=== PATIENT | male | born 1985 | race Caucasian/White ===

== ENCOUNTER → 2019-11-15 | Outpatient (CLI) | payer MEDICARE, MEDICAID ==
--- NOTE | 2019-11-15 15:27 | Diagnostic Imaging Report ---
INDICATION: Neck surgery and neck pain. TIME OF EXAM: 12:42 p.m. COMPARISON: No prior studies are available for comparison. FINDINGS: Cervico-occipital posterior fusion is noted. Vertical stabilization rods and screws extend from the occiput to the C6 level. Hardware is intact. No definite fracture or loosening of the hardware is seen. There is reversal of the normal cervical lordotic curvature. There is generalized degenerative disc disease. No fractures are seen. Prevertebral tissues are normal. IMPRESSION: Cervico-occipital posterior fusion, as described. No hardware fracture or loosening is seen. Dictated by: Dictated on workstation # [id number]
== END ==
LOC: RAD FS 12:27
PROVIDERS: ATTEND Nurse Practitioner Family
DX: M54.2 Cervicalgia (principal); Z98.1 Arthrodesis status
CPT/HCPCS: 72040

== ENCOUNTER → 2019-11-28 | Outpatient (CLI) | payer MEDICARE, MEDICAID ==
--- NOTE | 2019-11-28 15:41 | Diagnostic Imaging Report ---
INDICATION: Skin color change both lower extremities. History of transient ischemic attack/CVA along with tobacco use. Ankle swelling. TECHNIQUE: Segmental pulse pressures were performed of the upper and lower extremities. FINDINGS: Resting Doppler Blood Pressures RIGHT Brachial: 93 mmHg Ankle (Posterior Tibial): 114 mm Hg Index: 1.23 Ankle (Dorsalis Pedis): 107 mm Hg Index: 1.15 LEFT Brachial: 87 mmHg Ankle (Posterior Tibial): 102 mm Hg Index: 1.10 Ankle (Dorsalis Pedis): 105 mm Hg Index: 1.13 IMPRESSION: Normal ankle-brachial indices as above. Ankle-Brachial Index Diagnosis/Interpretation <=0.90 Peripheral Arterial Disease 0.91-0.99 Borderline 1.00-1.40 Normal >1.40 Concern for noncompressible arteries, (assoc with Diabetes Mellitus) Dictated by: Dictated on workstation # [id number]
--- NOTE | 2019-11-28 17:33 | Diagnostic Imaging Report ---
PROCEDURE: US venous lower extremity, bilaterally. TECHNIQUE: Multiple real-time grayscale images were obtained over the lower extremities in various projections, bilaterally. Additional duplex Doppler and color Doppler images were also obtained. INDICATION: Bilateral leg swelling. Paraplegic. CORRELATION STUDY: None. FINDINGS: Overall findings are somewhat limited. The veins throughout the lower extremities are fairly small in their overall caliber. There does appear to be some areas of scattered filling defect within multiple vessels. This appears slightly greater on the left compared to right. Findings are suggestive of probable areas of nonocclusive thrombus and/or scarring. Age of this, however, is ultimately indeterminate. IMPRESSION: Somewhat limited, suboptimal bilateral lower extremity venous duplex Doppler examination. Filling defects are present and may reflect nonocclusive clot within the lower lobectomy deep venous systems, left greater than right. Age of these are indeterminate could be acute or chronic. Dictated by: Dictated on workstation # [id number]
--- NOTE | 2019-11-28 17:39 | Diagnostic Imaging Report ---
PROCEDURE: US Bilateral lower extremity arterial. TECHNIQUE: Multiple real-time grayscale images are obtained through both lower extremity arterial systems with color Doppler imaging and color Doppler spectral analysis. INDICATION: Bilateral leg swelling. CORRELATION STUDY: None. FINDINGS: The major arteries of both legs are patent. There is detectable flow noted in the dorsalis pedis and posterior tibial arteries at the level of the ankle. There is generally normal multiphasic, triphasic to slightly dampened biphasic waveforms noted throughout the major arteries. There is no significant velocity change to suggest a focal area of stenosis. IMPRESSION: Bilateral lower extremity arterial systems are patent to the level of the ankles. No findings to suggest a focal area of stenosis. Dictated by: Dictated on workstation # [id number]
== END ==
LOC: RAD 12:27
PROVIDERS: ATTEND Nurse Practitioner Family
DX: R22.43 Localized swelling, mass and lump, lower limb, bilateral (principal); M79.661 Pain in right lower leg; G62.9 Polyneuropathy, unspecified
CPT/HCPCS: 93922; 93925; 93970

== ENCOUNTER → 2020-03-14 | Outpatient (CLI) | payer MEDICARE, MEDICAID ==
[~2020-03-14] MED LIST: HOLD METFORMIN - RECEIVED CONTRAST 20 ML VIAL IV SCH; IOHEXOL 350 MG/ML 100 ML (OMNIPAQUE 350) VIAL IV ONE; NS 100 ML (IVPB) BAG IV ONE
[2020-03-14 13:38] LABS: ABG BASE EXCESS 4.8 MMOL/L (-2.5-2.5); ABG PCO2 55 MMHG (35-45); ABG PH 7.36 (7.37-7.43); ABG TCO2 31.6 MMOL/L (21.0-31.0)
[2020-03-14 13:53] LABS: BUN/CREATININE RATIO 9; CREATININE SERUM 1.06 MG/DL (0.60-1.30); GFR ESTIMATED > 60
[2020-03-14 13:54] LABS: ABG OXYGEN SATURATION 63 % (94-100); ABG PO2 39 MMHG (79-93); ALLENS TEST YES-POS; INSPIRED O2 RA; PATIENT TEMP 37.4; VENTILATOR NO
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
== END ==
LOC: RT 12:58
PROVIDERS: ATTEND Internal Medicine Critical Care Medicine
DX: M41.84 Other forms of scoliosis, thoracic region (principal); F17.211 Nicotine dependence, cigarettes, in remission; J98.4 Other disorders of lung; R06.00 Dyspnea, unspecified; V29.9XXA Motorcycle rider (driver) (passenger) injured in unspecified traffic accident, initial encounter; Z95.828 Presence of other vascular implants and grafts; Z98.890 Other specified postprocedural states
CPT/HCPCS: 36415; 71260; 82565; 82805; 84520

== ENCOUNTER → 2020-04-01 | Outpatient (CLI) | payer MEDICARE, MEDICAID ==
--- NOTE | 2020-04-01 13:53 | Diagnostic Imaging Report ---
PROCEDURE: CT urinary tract, rule out kidney stone. TECHNIQUE: Multiple contiguous axial images were obtained through the abdomen and pelvis without the use of intravenous contrast. Auto Exposure Controls were utilized during the CT exam to meet ALARA standards for radiation dose reduction. INDICATION: Left-sided flank pain since yesterday. No prior studies are available for comparison. The lung bases are clear. There is diastases of the rectus musculature with midline ventral hernia. This does contain portions of the stomach as well as transverse colon and several small bowel loops. Bowel loops do remain normal caliber. No definite evidence of obstruction or strangulation is identified. Postsurgical changes in the right lobe the liver are noted with multiple surgical clips present. Gallbladder is unremarkable. No biliary ductal dilatation is seen. The pancreas and spleen are unremarkable. No adrenal mass is identified. A right kidney is not visualized. There is a solitary left kidney which does demonstrate generalized hydroureteronephrosis. The dilated left ureter is traced into the pelvis to the UVJ but no definite obstructing calculi are seen. The bladder is decompressed by suprapubic catheter. There is a probable tiny intrarenal calculus noted within left lower pole renal calyx. Aorta is non-aneurysmal. There is a filter within the IVC. No free fluid or fluid collection is identified. A partially threaded screw transfixes the right SI joint and right hemipelvis. IMPRESSION: 1. Solitary left kidney demonstrates generalized hydroureteronephrosis. No definite obstructing calculi are detected. The bladder is decompressed by suprapubic catheter. There are small nonobstructing calculi within the left kidney. 2. Rectus abdominous musculature diastases with large midline ventral hernia, as described. No definite bowel obstruction or strangulation is seen. Dictated by: Dictated on workstation # [id number]
== END ==
LOC: RAD FS 12:58
PROVIDERS: ATTEND Nurse Practitioner Family
DX: N13.2 Hydronephrosis with renal and ureteral calculous obstruction (principal); M62.08 Separation of muscle (nontraumatic), other site; K43.9 Ventral hernia without obstruction or gangrene; Z87.442 Personal history of urinary calculi; Z98.890 Other specified postprocedural states; Z98.1 Arthrodesis status
CPT/HCPCS: 74176

== ENCOUNTER → 2020-05-28 | Outpatient (CLI) | payer MEDICARE, MEDICAID ==
--- NOTE | 2020-05-28 15:38 | Diagnostic Imaging Report ---
INDICATION: Back pain. COMPARISON: None. FINDINGS: Frontal and lateral radiographic views of the thoracic spine were obtained. Evaluation of static alignment shows [id number] dextroscoliotic deformity measured approximately 37 degrees. Lateral view shows no significant anteroretrolisthesis. Vertebral body heights are maintained. There is no evidence of acute fracture. No effusion or segmentation anomalies are identified. Included portions of the lung hubbard are clear. Right internal jugular Port-A-Cath is noted with tip in the SVC. IMPRESSION: 1. Xana-tc-rxjpmkoz dextroscoliotic deformity of the thoracic spine, but no evidence of acute fracture or dislocation. Dictated by: Dictated on workstation # [id number]
== END ==
LOC: RAD FS 14:34
PROVIDERS: ATTEND Nurse Practitioner Family
DX: M41.84 Other forms of scoliosis, thoracic region (principal); Z95.828 Presence of other vascular implants and grafts
CPT/HCPCS: 72070

== ENCOUNTER → 2020-07-21 | Outpatient (CLI) | payer MEDICARE, MEDICAID ==
[2020-07-21 14:36] LABS: BILIRUBIN,URINE NEGATIVE (NEGATIVE); CLARITY,URINE SLIGHTLY CLOUDY; COLOR,URINE PALE YELLOW; GLUCOSE, URINE (UA) NEGATIVE (NEGATIVE); KETONES,URINE NEGATIVE (NEGATIVE); LEUKOCYTE ESTERASE ,URINE 2+ (NEGATIVE); NITRITE,URINE NEGATIVE (NEGATIVE); PROTEIN,URINE NEGATIVE (NEGATIVE)
[2020-07-21 14:37] LABS: BACTERIA,URINE LARGE /HPF; WBC,URINE 50-100 /HPF
== END ==
LOC: LAB FS 14:01
PROVIDERS: ATTEND Family Medicine
DX: R82.90 Unspecified abnormal findings in urine (principal)
CPT/HCPCS: 81000; 87088

== ENCOUNTER → 2020-08-27 | Outpatient (CLI) | payer MEDICARE, MEDICAID ==
[2020-08-27 13:57] LABS: BILIRUBIN,URINE NEGATIVE (NEGATIVE); CLARITY,URINE CLOUDY; COLOR,URINE YELLOW; GLUCOSE, URINE (UA) NEGATIVE (NEGATIVE); KETONES,URINE NEGATIVE (NEGATIVE); LEUKOCYTE ESTERASE ,URINE 2+ (NEGATIVE); NITRITE,URINE NEGATIVE (NEGATIVE); PROTEIN,URINE 1+ (NEGATIVE)
[2020-08-27 13:58] LABS: BACTERIA,URINE MODERATE /HPF; SQUAMOUS EPITHELIAL CELL,UR 0-2 /HPF; WBC,URINE 50-100 /HPF
== END ==
LOC: LAB FS 13:34
PROVIDERS: ATTEND Nurse Practitioner Family
DX: M62.838 Other muscle spasm (principal)
CPT/HCPCS: 81000; 87088

== ENCOUNTER → 2020-10-01 | Outpatient (CLI) | payer MEDICARE, MEDICAID ==
[2020-10-01 15:49] LABS: BILIRUBIN,URINE NEGATIVE (NEGATIVE); CLARITY,URINE SLT CLOUDY; COLOR,URINE PALE YELLOW; GLUCOSE, URINE (UA) NEGATIVE (NEGATIVE); KETONES,URINE NEGATIVE (NEGATIVE); LEUKOCYTE ESTERASE ,URINE 2+ (NEGATIVE); NITRITE,URINE POSITIVE (NEGATIVE); PROTEIN,URINE NEGATIVE (NEGATIVE)
[2020-10-01 15:50] LABS: BACTERIA,URINE MODERATE /HPF; RBC,URINE 0-2 /HPF; SQUAMOUS EPITHELIAL CELL,UR RARE /HPF; WBC,URINE 25-50 /HPF
== END ==
LOC: IHC 15:19
PROVIDERS: ATTEND Family Medicine
DX: N39.0 Urinary tract infection, site not specified (principal)
CPT/HCPCS: 81000; 87088

== ENCOUNTER → 2020-10-17 | Outpatient (CLI) | payer MEDICARE, MEDICAID ==
--- NOTE | 2020-10-17 13:36 | Diagnostic Imaging Report ---
INDICATION: Shoulder pain. COMPARISON: None. FINDINGS: 2 views of the right shoulder were obtained. There is no fracture, dislocation, or other acute bony abnormality identified. The soft tissues appear unremarkable. No radiopaque foreign bodies identified. The visualized portions of the right lung are clear. Right internal jugular Port-A-Cath is seen with tip in the low SVC IMPRESSION: No acute fractures or dislocations of the right shoulder. Dictated by: Dictated on workstation # [id number]
== END ==
LOC: RAD FS 13:05
PROVIDERS: ATTEND Nurse Practitioner Family
DX: M25.511 Pain in right shoulder (principal)
CPT/HCPCS: 73030

== ENCOUNTER → 2020-12-18 | Outpatient (CLI) | payer MEDICARE, MEDICAID ==
[2020-12-18 13:19] LABS: BACTERIA,URINE MODERATE /HPF; BILIRUBIN,URINE NEGATIVE (NEGATIVE); CLARITY,URINE CLEAR; COLOR,URINE YELLOW; GLUCOSE, URINE (UA) NEGATIVE (NEGATIVE); KETONES,URINE NEGATIVE (NEGATIVE); LEUKOCYTE ESTERASE ,URINE 1+ (NEGATIVE); NITRITE,URINE NEGATIVE (NEGATIVE); PROTEIN,URINE NEGATIVE (NEGATIVE)
[2020-12-18 13:20] LABS: AMORPHOUS SEDIMENT,UR FEW AMOR URATES /LPF
== END ==
LOC: IHC 12:41
PROVIDERS: ATTEND Family Medicine
DX: Z43.5 Encounter for attention to cystostomy (principal)
CPT/HCPCS: 81000; 87077; 87088; 87186

== ENCOUNTER → 2021-01-02 | Outpatient (CLI) | payer MEDICARE, MEDICAID ==
--- NOTE | 2021-01-02 15:35 | Diagnostic Imaging Report ---
EXAMINATION: Chest 2 views. HISTORY: Wheezing. COMPARISON: None available. FINDINGS: Right-sided port catheter is present. Heart is mildly enlarged. There is no pleural effusion or pneumothorax. There is dextroscoliosis of the right hilum that is slightly distorted due to this. IMPRESSION: 1. Clear lungs. Dictated by: Dictated on workstation # [id number]
== END ==
LOC: RAD FS 14:35
PROVIDERS: ATTEND Nurse Practitioner Family
DX: R06.2 Wheezing (principal)
CPT/HCPCS: 71046

== ENCOUNTER → 2021-01-13 | Outpatient (CLI) | payer MEDICARE, MEDICAID ==
[2021-01-13 14:08] LABS: BACTERIA,URINE MODERATE /HPF; BILIRUBIN,URINE NEGATIVE (NEGATIVE); CLARITY,URINE CLEAR; COLOR,URINE YELLOW; GLUCOSE, URINE (UA) NEGATIVE (NEGATIVE); KETONES,URINE NEGATIVE (NEGATIVE); LEUKOCYTE ESTERASE ,URINE 3+ (NEGATIVE); NITRITE,URINE NEGATIVE (NEGATIVE); PROTEIN,URINE NEGATIVE (NEGATIVE)
== END ==
LOC: IHC 13:24
PROVIDERS: ATTEND Family Medicine
DX: N39.0 Urinary tract infection, site not specified (principal)
CPT/HCPCS: 81000; 87088

== ENCOUNTER → 2021-01-16 | Outpatient (CLI) | payer MEDICARE, MEDICAID ==
[2021-01-16 12:45] LABS: BILIRUBIN,URINE NEGATIVE (NEGATIVE); CLARITY,URINE CLEAR; COLOR,URINE PALE YELLOW; GLUCOSE, URINE (UA) NEGATIVE (NEGATIVE); KETONES,URINE NEGATIVE (NEGATIVE); NITRITE,URINE NEGATIVE (NEGATIVE); PH,URINE 6.5 (5-9); PROTEIN,URINE NEGATIVE (NEGATIVE)
[2021-01-16 12:46] LABS: BACTERIA,URINE TRACE /HPF; LEUKOCYTE ESTERASE ,URINE 2+ (NEGATIVE); RBC,URINE RARE /HPF
== END ==
LOC: IHC 12:04
PROVIDERS: ATTEND Family Medicine
DX: R82.90 Unspecified abnormal findings in urine (principal)
CPT/HCPCS: 81000

== ENCOUNTER → 2021-01-21 | Outpatient (CLI) | payer MEDICARE, MEDICAID | LOC: IHC 13:43 | PROVIDERS: ATTEND Nurse Practitioner Family | DX: N39.0 Urinary tract infection, site not specified (principal); R56.9 Unspecified convulsions; M62.838 Other muscle spasm | CPT/HCPCS: 87088 ==

== ENCOUNTER → 2021-04-29 | Outpatient (CLI) | payer MEDICARE, MEDICAID ==
[2021-04-29 17:26] LABS: BILIRUBIN,URINE NEGATIVE (NEGATIVE); CLARITY,URINE SL CLOUDY; GLUCOSE, URINE (UA) NEGATIVE (NEGATIVE); KETONES,URINE NEGATIVE (NEGATIVE); LEUKOCYTE ESTERASE ,URINE 2+ (NEGATIVE); NITRITE,URINE POSITIVE (NEGATIVE); PROTEIN,URINE NEGATIVE (NEGATIVE)
[2021-04-29 17:38] LABS: BACTERIA,URINE MODERATE /HPF; COLOR,URINE PALE YELLOW
== END ==
LOC: IHC 16:12
PROVIDERS: ATTEND Family Medicine
DX: N39.0 Urinary tract infection, site not specified (principal)
CPT/HCPCS: 81000; 87088

== ENCOUNTER → 2021-06-01 | Outpatient (CLI) | payer MEDICARE, MEDICAID ==
--- NOTE | 2021-06-01 11:51 | Diagnostic Imaging Report ---
PROCEDURE: CT head without contrast. TECHNIQUE: Multiple contiguous axial images were obtained through the brain without the use of intravenous contrast. Auto Exposure Controls were utilized during the CT exam to meet ALARA standards for radiation dose reduction. INDICATION: Headache increasing in severity in the left temporal region. No prior studies are available for comparison. Ventricles are somewhat prominent for patient of this age. There is no sulcal effacement. No midline shift is identified. No acute intra-axial or extra-axial hemorrhage is detected. Cisterns are patent. Visualized paranasal sinuses demonstrate opacification of several ethmoid air cells. Sinuses are otherwise clear. IMPRESSION: Mildly prominent ventricles. The study is otherwise unremarkable. Dictated by: Dictated on workstation # [id number]
== END ==
LOC: RAD FS 11:13
PROVIDERS: ATTEND Nurse Practitioner Family
DX: R51.9 Headache, unspecified (principal); Z87.898 Personal history of other specified conditions
CPT/HCPCS: 70450

== ENCOUNTER 2021-10-23 13:00 | Outpatient (RCR) | payer MEDICARE, MEDICAID | END 2021-10-27 | disposition home or self-care (01) | LOC: CARD 13:00 | PROVIDERS: ATTEND Physician Assistant | DX: R00.2 Palpitations (principal) ==

== ENCOUNTER → 2022-01-26 | Outpatient (CLI) | payer MEDICARE, MEDICAID ==
--- NOTE | 2022-01-26 15:49 | Diagnostic Imaging Report ---
INDICATION: Pain in the left wrist. TIME OF EXAM: 11:57 a.m. FINDINGS: Three views of the left wrist were obtained. Distal radius and ulna are intact. The carpus appears intact. Metacarpals are unremarkable. No fractures are seen. IMPRESSION: No acute bony abnormality is detected. Dictated by: Dictated on workstation # [id number]
--- NOTE | 2022-01-26 15:50 | Diagnostic Imaging Report ---
Indication: Right wrist pain. Time of Exam: 11:59 AM Three views of the right wrist were obtained. There appears to be a healed fracture of the distal ulna near the junction of the mid and distal third. There is a large amount of soft tissue calcification in the forearm, likely in the region of the interosseous membrane from prior injury. The distal radius and ulna are intact. Carpus appears intact. No new fracture is seen. IMPRESSION: Chronic and posttraumatic changes. No acute bony abnormality is detected. Dictated by: Dictated on workstation # [id number]
== END ==
LOC: RAD FS 11:39
PROVIDERS: ATTEND Nurse Practitioner Family
DX: M25.532 Pain in left wrist (principal); M25.531 Pain in right wrist; G89.11 Acute pain due to trauma
CPT/HCPCS: 73110

== ENCOUNTER 2022-05-07 20:42 | Emergency (ER) | payer MEDICARE, MEDICAID ==
[~2022-05-07] VITALS: Ht 180.3 cm; Wt 81.6 kg
--- NOTE | 2022-05-07 21:02 | ED GI ---
General Chief Complaint: Catheter/Drain/Tube Problems Stated Complaint: CATH ISSUES,ABD PAIN Source of Information: Patient Exam Limitations: No Limitations History of Present Illness Date Seen by Provider: May 07, 2022 Time Seen by Provider: 20:45 Initial Comments 37yoM with PMH of cervical spine injury now with suprapubic catheter for many years coming in due to catheter issue. He states its been clogged for many hours, and he is about 2 days overdue for changing it out anyways. He does have supplies to change it out, is requesting we can do that for him. Does have some suprapubic discomfort associated with it, and feels like his bladder is full. Denies any fever, nausea, vomiting, or any other concerns Allergies and Home Medications Allergies Coded Allergies: No Allergy Information Available (Unverified , 03/14/20) Patient Home Medication List Home Medication List Reviewed: Yes Review of Systems Review of Systems Constitutional: No fever EENTM: No Symptoms Reported Respiratory: No Symptoms Reported Cardiovascular: No Symptoms Reported Gastrointestinal: No Symptoms Reported Genitourinary: See HPI Musculoskeletal: no symptoms reported Skin: no symptoms reported Psychiatric/Neurological: No Symptoms Reported Endocrine: No Symptoms Reported Hematologic/Lymphatic: No Symptoms Reported All Other Systems Reviewed Negative Unless Noted: Yes Past Ydhvxbf-Upublr-Qfeadj Hx Patient Social History Substance use?: No Past Medical History Surgeries: Yes (suprapubic catheter) Physical Exam Vital Signs Capillary Refill : Height/Weight/BMI Height: '" Weight: lbs. oz. kg; BMI Method: General Appearance: WD/WN, no apparent distress HEENT: PERRL/EOMI, normal ENT inspection, pharynx normal Neck: non-tender, full range of motion, supple, normal inspection Respiratory: chest non-tender, lungs clear, normal breath sounds, no respiratory distress, no accessory muscle use Cardiovascular: regular rate, rhythm, no edema, no murmur Gastrointestinal: normal bowel sounds, soft; No distended, No guarding, No rebound; tenderness (Suprapubic) Extremities: other (Legs paralyzed and nonfunctional) Back: normal inspection, no CVA tenderness, no vertebral tenderness Neurologic/Psychiatric: alert, normal mood/affect, other (At baseline) Skin: normal color, warm/dry Lymphatic: no adenopathy Progress/Results/Core Measures Progress Progress Note : Progress Note 37-year-old male with above history coming in due to problems with his suprapubic catheter. ABCs were intact and vitals were stable on presentation. His suprapubic catheter was changed out here in the ER with good clear urine drainage. Patient feeling better. Discharged home in stable condition with strict return precautions Departure Impression Primary Impression: Miller catheter problem Qualified Codes: T83.9XXA - Unspecified complication of genitourinary prosthetic device, implant and graft, initial encounter Disposition: HOME, SELF-CARE Condition: Improved Departure-Patient Inst. Decision time for Depature: 21:17 Referrals: SOFIYA EARLY APRN (PCP) Primary Care Physician [facility][1]/MICHAEL (Family) Primary Care Physician Patient Instructions: Miller Catheter Add. Discharge Instructions: Please follow-up with your regular doctor as needed. If he have any issues, you can always come back to the ER Work/School Note: Work Release Form Date Seen in the Emergency Department: May 07, 2022 Return to Work: May 08, 2022 Restrictions: No Restrictions FAUSTINA FOX MD May 07, 2022 21:02
[2022-05-07 21:15] VITALS: BP 140/84
== END 2022-05-07 21:52 | disposition home or self-care (01) ==
LOC: EDUNIT# 20:42 → ER FS 20:43
DX: T83.9XXA Unspecified complication of genitourinary prosthetic device, implant and graft, initial encounter (principal)
CPT/HCPCS: 99282

== ENCOUNTER → 2022-06-01 | Outpatient (CLI) | payer MEDICARE, MEDICAID ==
[~2022-06-01] MED LIST changes: +CATHETER FLUSH 10 ML SYR IV PRN
[2022-06-01 12:50] LABS: POTASSIUM 4.2 MMOL/L (3.6-5.0)
[2022-06-01 12:51] LABS: CREATININE SERUM 1.14 MG/DL (0.60-1.30)
--- NOTE | 2022-06-01 14:40 | Diagnostic Imaging Report ---
EXAMINATION: CT chest with intravenous contrast. TECHNIQUE: Multiple contiguous axial images were obtained through the chest after the uneventful administration of intravenous contrast. All CT scans use one or more of the following dose optimizing techniques: automated exposure control, MA and/or KvP adjustment based on patient size and exam type or iterative reconstruction. HISTORY: Chronic respiratory failure COMPARISON: 03/14/2020 FINDINGS: Thyroid: The thyroid is normal. Mediastinum: Heart size is normal without significant pericardial effusion. The aorta is normal in caliber. No suspicious lymphadenopathy. Lungs and airways: The lungs are clear without consolidation, pleural effusion, or pneumothorax. There is linear atelectasis or scarring in the lung bases. There is occlusion of the posterior right lower lobe airways (series 5 image 87, 88). Upper abdomen: There is diastases of the anterior abdominal wall. The gallbladder is surgically absent. Nodular appearance of the left kidney. Musculoskeletal: Degenerative changes of the spine without suspicious osseous lesion or compression fracture. IMPRESSION: 1. No acute abnormality in the chest. 2. Filling defects within the posterior right lower lobe airways which can be seen with mucus plugging, as similar findings were seen within multiple airways in the right lower lobe on 03/14/2020. Recommend continued CT followup in 6-12 months. Dictated by: Dictated on workstation # [id number]
== END ==
LOC: RAD FS 04-16 11:08
PROVIDERS: ATTEND Nurse Practitioner Family
DX: Z01.811 Encounter for preprocedural respiratory examination (principal); J96.10 Chronic respiratory failure, unspecified whether with hypoxia or hypercapnia; G82.20 Paraplegia, unspecified; R26.89 Other abnormalities of gait and mobility
CPT/HCPCS: 36415; 71260; 80048; Q9967

== ENCOUNTER → 2022-09-08 | Outpatient (CLI) | payer MEDICARE, MEDICAID ==
--- NOTE | 2022-09-08 11:42 | Diagnostic Imaging Report ---
INDICATION: Recurrent UTIs. COMPARISON: None FINDINGS: Single frontal radiographic view of the abdomen was obtained. Multiple surgical clips project over the right upper abdominal quadrant. Indwelling IVC filter is present. Partially threaded screw are also traverses the right SI joint. No unexpected extraosseous calcifications or radiopaque foreign bodies are seen. Small bowel loops are nondistended. There is no large collection of free intraperitoneal air. IMPRESSION: 1. Nonobstructed small bowel gas pattern. Dictated by: Dictated on workstation # [id number]
== END ==
LOC: RAD FS 10:58
PROVIDERS: ATTEND Urology
DX: N39.0 Urinary tract infection, site not specified (principal)
CPT/HCPCS: 74018

== ENCOUNTER 2022-10-05 16:06 | Emergency (ER) | payer MEDICARE, MEDICAID ==
[~2022-10-05] VITALS: Ht 177.8 cm; Wt 86.2 kg
[2022-10-05] MEDS ORDERED: NS IV 1000 ML 1,000 ML IV STA (16:18)
[2022-10-05] MEDS ORDERED: RT-ALBUTEROL/IPRATROPIUM 3 ML (DUONEB) VIAL INH ONE (16:30)
[2022-10-05] MEDS ORDERED: AZITHROMYCIN 250 MG TAB (ZITHROMAX) PO STA (16:33)
[2022-10-05] MEDS ORDERED: cefTRIAXone IV/IM 1,000 MG in NS (IVPB) 50 ML IV STA ×2 (16:33→16:51)
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
[2022-10-05 16:51] LABS: HEMATOCRIT 41 % (40-54); HEMOGLOBIN 13.7 g/dL (13.3-17.7); MEAN CORPUSCULAR HEMOGLOBIN 29 pg (25-34); MEAN CORPUSCULAR HGB CONC 33 g/dL (32-36); MEAN CORPUSCULAR VOLUME 86 fL (80-99); MEAN PLATELET VOLUME 10.5 fL (9.0-12.2); PLATELET COUNT 178 10^3/uL (130-400); WHITE BLOOD COUNT 18.8 10^3/uL (4.3-11.0)
[2022-10-05 16:52] LABS: BASOPHILS % (AUTO) 0 % (0-10); EOSINOPHILS # (AUTO) 0.1 10^3/uL (0.0-0.3); EOSINOPHILS % (AUTO) 0 % (0-10); LYMPHOCYTES # (AUTO) 1.3 X 10^3 (1.0-4.0); LYMPHOCYTES % (AUTO) 7 % (12-44); MONOCYTES # (AUTO) 1.6 X 10^3 (0.0-1.0); MONOCYTES % (AUTO) 9 % (0-12); NEUTROPHILS # (AUTO) 15.7 X 10^3 (1.8-7.8); NEUTROPHILS % (AUTO) 84 % (42-75)
--- NOTE | 2022-10-05 16:55 | Diagnostic Imaging Report ---
CLINICAL INDICATIONS: Patient with chest pain with deep breaths. EXAM: Portable chest x-ray upright view. COMPARISON: Chest x-ray dated 01/02/2021. FINDINGS: Stable appearance of the chest with no interval lung infiltrate. 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 Infusaport is again seen overlying the right chest, in stable position. There is no pleural effusion or pneumothorax. IMPRESSION: Stable chest x-ray exam with no interval radiographic evidence of acute cardiopulmonary process. Dictated by: Dictated on workstation # [id number]
[2022-10-05 17:07] LABS: POTASSIUM 4.5 MMOL/L (3.6-5.0)
[2022-10-05 17:08] LABS: ALBUMIN 4.1 GM/DL (3.2-4.5); BILIRUBIN,TOTAL 0.5 MG/DL (0.1-1.0); CALCIUM 9.5 MG/DL (8.5-10.1); CREATININE SERUM 1.11 MG/DL (0.60-1.30); MAGNESIUM 1.6 MG/DL (1.6-2.4)
[2022-10-05] MEDS ORDERED: cefTRIAXone PRE-MIX 50 ML IV ONE (17:08)
[2022-10-05 17:27] LABS: BAND NEUTROPHILS 14 %; BASOPHILS % (MANUAL) 1 %; EOSINOPHILS % (MANUAL) 0 %; LYMPHOCYTES % (MANUAL) 9 %; MONOCYTES % (MANUAL) 9 %; NEUTROPHILS % (MANUAL) 67 %
[2022-10-05] MEDS ORDERED: AZIT500T9 PO (17:45)
[2022-10-05] MEDS ORDERED: HEParin (CENTRAL IV FLUSH) 500 UNIT/5 ML SYR IV STA (18:03)
[2022-10-05 18:21] VITALS: BP 106/61
== END 2022-10-05 18:22 | disposition home or self-care (01) ==
LOC: EDUNIT# 16:06 → ER FS 16:07
DX: J15.9 Unspecified bacterial pneumonia (principal); J32.0 Chronic maxillary sinusitis; J32.1 Chronic frontal sinusitis; Z20.822 Contact with and (suspected) exposure to COVID-19; Z88.2 Allergy status to sulfonamides
CPT/HCPCS: 36415; 71045; 80053; 83605; 83735; 85007; 85027; 86141; 87040; 87636

== ENCOUNTER → 2023-01-12 | Outpatient (CLI) | payer MEDICARE, MEDICAID ==
[~2023-01-12] MED LIST changes: +AZIT500T9 PO; -CATHETER FLUSH 10 ML SYR IV PRN; -HOLD METFORMIN - RECEIVED CONTRAST 20 ML VIAL IV SCH; -IOHEXOL 350 MG/ML 100 ML (OMNIPAQUE 350) VIAL IV ONE; -NS 100 ML (IVPB) BAG IV ONE
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
== END ==
LOC: RAD 12:43
PROVIDERS: ATTEND Psychiatry & Neurology Neurology
DX: G93.89 Other specified disorders of brain (principal)
CPT/HCPCS: 70551